=== PATIENT | female | born 1965 ===

== ENCOUNTER 2023-08-20 09:37 | Day surgery (SDC) | payer OTHER ==
[2023-08-20] MEDS ORDERED: POVIDONE-IODINE 118 ML BOTT TOP ONE ×2 (11:18→11:30)
[2023-08-20] MEDS ORDERED: ONDANSETRON HCL 2 MG/ML VIAL IV ONE (12:15)
[2023-08-20] MEDS ORDERED: ONDANSETRON HCL 2 MG/ML VIAL ONE (16:33)
== END 2023-08-20 18:12 | disposition home or self-care (01) ==
LOC: CIR.AMB 09:37
PROVIDERS: ATTEND Obstetrics & Gynecology
DX: N95.0 Postmenopausal bleeding (principal); N84.0 Polyp of corpus uteri; Z20.822 Contact with and (suspected) exposure to COVID-19